=== PATIENT | female | born 1995 | race Caucasian/White ===

== ENCOUNTER 2016-11-12 03:45 | Emergency (ER) | payer SELFPAY ==
[2016-11-12] MEDS ORDERED: IBUPROFEN 600 MG TABLET PO ONE (07:40)
[2016-11-12 08:17] LABS: ABSOLUTE LYMPHOCYTES (AUTO) 1.4 10^3/uL (0.5-4.7); ABSOLUTE MONOCYTES (AUTO) 0.7 10^3/uL (0.1-1.4); ABSOLUTE NEUT (AUTO) 9.3 10^3/uL (1.7-8.2); BASOPHILS % (AUTO) 0.3 % (0-2); EOSINOPHILS % (AUTO) 0.4 % (0-6); HEMATOCRIT 37.7 % (36.0-47.0); HEMOGLOBIN 12.3 g/dL (12.0-15.5); HGB HCT DIFFERENCE -0.8; LYMPHOCYTES % (AUTO) 11.8 % (13-45); MEAN CORPUSCULAR HEMOGLOBIN 27.6 pg (27.0-33.4); MEAN CORPUSCULAR HGB CONC 32.5 g/dL (32.0-36.0); MEAN CORPUSCULAR VOLUME 85 fl (80-97); MONOCYTES % (AUTO) 6.4 % (3-13); RED BLOOD COUNT 4.43 10^6/uL (3.72-5.28); RED CELL DISTRIBUTION WIDTH 13.3 % (11.5-14.0); SEGMENTED NEUTROPHILS % (AUTO) 81.1 % (42-78); WHITE BLOOD COUNT 11.5 10^3/uL (4.0-10.5)
[2016-11-12 08:23] LABS: ANION GAP 16 (5-19); BLOOD UREA NITROGEN 9 mg/dL (7-20); CALCIUM 9.7 mg/dL (8.4-10.2); CARBON DIOXIDE 25 mmol/L (22-30); CHLORIDE 103 mmol/L (98-107); GLUCOSE 94 mg/dL (75-110); POTASSIUM 4.3 mmol/L (3.6-5.0); SODIUM 144.4 mmol/L (137-145)
[2016-11-12] MEDS ORDERED: DEXAMETHASONE 4 MG TABLET PO ONE (09:32)
--- NOTE | 2016-11-12 09:36 | ER Document Report ---
ED General - General Chief Complaint: Sore Throat Stated Complaint: THROAT PAIN TRAVEL OUTSIDE OF THE [place] IN LAST 30 DAYS: No - HPI Patient complains to provider of: sore throat lymph node left neck Notes: Patient coming in for assessment of a sore throat ongoing for last 2 days and enlarged lymph node left side of the neck ongoing for the last week. Patient states was recently exposed to a friend with mono. Denies any fevers chills nausea vomiting. Patient states hurts to swallow food however she is able to tolerate solid food and liquids. No other medications - Related Data Allergies/Adverse Reactions: acetaminophen [From Percocet] Allergy (Verified 02/24/15 22:33) Amphetamine Aspartate * [From Adderall] Allergy (Verified 02/24/15 22:33) amphetamine sulfate [From Adderall] Allergy (Verified 02/24/15 22:33) dextroamphetamine [From Adderall] Allergy (Verified 02/24/15 22:33) oxycodone HCl [From Percocet] Allergy (Verified 02/24/15 22:33) Past Medical History - Social History Smoking Status: Never Smoker Chew tobacco use (# tins/day): No Frequency of alcohol use: Social Drug Abuse: None Family History: Reviewed & Not Pertinent Patient has suicidal ideation: No Patient has homicidal ideation: No Psychiatric Medical History: Reports: Hx Attention Deficit Hyperactivity Disorder - Immunizations Hx Diphtheria, Pertussis, Tetanus Vaccination: No Review of Systems - Review of Systems Constitutional: No symptoms reported EENT: Throat pain Cardiovascular: No symptoms reported Respiratory: No symptoms reported Gastrointestinal: No symptoms reported Genitourinary: No symptoms reported Female Genitourinary: No symptoms reported Musculoskeletal: No symptoms reported Skin: No symptoms reported Hematologic/Lymphatic: No symptoms reported Neurological/Psychological: No symptoms reported -: Yes All other systems reviewed and negative Physical Exam - Vital signs Vitals: Temp Pulse Resp BP Pulse Ox 99 F 92 18 133/58 H 99 11/12/16 03:56 11/12/16 03:56 11/12/16 03:56 11/12/16 03:56 11/12/16 03:56 Interpretation: Normal - General General appearance: Appears well, Alert - HEENT Head: Normocephalic, Atraumatic Eyes: Normal Conjunctiva: Normal Cornea: Normal Pupils: PERRL Neck: Lymphadenopathy - Solitary lymph node and tender to palpation no fluctuance on left side anything of the mandible. - Respiratory Respiratory status: No respiratory distress Chest status: Nontender Breath sounds: Normal Chest palpation: Normal - Cardiovascular Rhythm: Regular Heart sounds: Normal auscultation Murmur: No - Abdominal Inspection: Normal Distension: No distension Bowel sounds: Normal Tenderness: Nontender Organomegaly: No organomegaly - Back Back: Normal, Nontender - Extremities General upper extremity: Normal inspection, Nontender, Normal color, Normal ROM , Normal temperature General lower extremity: Normal inspection, Nontender, Normal color, Normal ROM , Normal temperature, Normal weight bearing. No: Gabby's sign - Neurological Neuro grossly intact: Yes Cognition: Normal Orientation: AAOx4 [place] Coma Scale Eye Opening: Spontaneous Carine Coma Scale Verbal: Oriented Carine Coma Scale Motor: Obeys Commands Carine Coma Scale Total: 15 Speech: Normal Motor strength normal: LUE, RUE, LLE, RLE Sensory: Normal - Psychological Associated symptoms: Normal affect, Normal mood - Skin Skin Temperature: Warm Skin Moisture: Dry Skin Color: Normal Course - Re-evaluation Re-evalutation: 11/12/16 15:34 Patient lab work shows no signs of mono or strep throat. Patient will be treated with steroids and Magic mouthwash more likely viral pharyngitis will be discharged home - Vital Signs Vital signs: Temp Pulse Resp BP Pulse Ox 98.3 F 74 15 119/52 L 97 11/12/16 09:43 11/12/16 09:43 11/12/16 09:43 11/12/16 09:43 11/12/16 09:43 - Laboratory Result Diagrams: 11/12/16 07:33 11/12/16 07:33 Laboratory results interpreted by me: 11/12/16 07:33 WBC 11.5 H Seg Neutrophils % 81.1 H Lymphocytes % 11.8 L Absolute Neutrophils 9.3 H Discharge - Discharge Clinical Impression: Sore throat (viral) Condition: Good Disposition: HOME, SELF-CARE Instructions: Sore Throat ([facility]), Lymphadenopathy ([facility]) Additional Instructions: Follow-up with your primary care physician. At this time your monitored testing strep testing are all negative. Return to ER symptoms worsen Prescriptions: Magic Mouthwash 5 ml PO Q6 PRN #120 PRN Reason: Forms: Return to Work
[2016-11-12 09:51] VITALS: BP 119/52
== END 2016-11-12 09:45 | disposition home or self-care (01) ==
LOC: ER 03:45
DX: J02.9 Acute pharyngitis, unspecified (principal); Z88.6 Allergy status to analgesic agent
CPT/HCPCS: 36415; 80048; 84703; 85025; 86308; 87070; 87077; 87804; 87880; 99283

== ENCOUNTER 2017-02-28 10:13 | Emergency (ER) | payer SELFPAY ==
--- NOTE | 2017-02-28 11:22 | ER Document Report ---
ED GI/ - General Chief Complaint: STD Exposure Stated Complaint: POSSIBLE STD EXPOSURE Time seen by provider: 11:19 Mode of Arrival: Ambulatory Information source: Patient Notes: 21-year-old female presents to ED for STD exposure. She states one of her partners called her up a week ago and told her that they had a bacterial STD. She states she's had vaginal itching but denies discharge or odor. Denies any pain with urination. TRAVEL OUTSIDE OF THE [place] IN LAST 30 DAYS: No - HPI Patient complains to provider of: Other - STD exposure Onset: Other - States she was total week ago that her partner had an STD Quality of pain: Other - Vaginal itching no pain Severity in ED: None Pain Level: Denies Vaginal bleeding (Compared to normal period): None Associated symptoms: Other - Vaginal itching Exacerbated by: Denies Relieved by: Denies Similar symptoms previously: Yes Recently seen / treated by doctor: No - Related Data Allergies/Adverse Reactions: acetaminophen [From Percocet] Allergy (Verified 02/28/17 10:18) Amphetamine Aspartate * [From Adderall] Allergy (Verified 02/28/17 10:18) amphetamine sulfate [From Adderall] Allergy (Verified 02/28/17 10:18) dextroamphetamine [From Adderall] Allergy (Verified 02/28/17 10:18) oxycodone HCl [From Percocet] Allergy (Verified 02/28/17 10:18) Past Medical History - General Information source: Patient - Social History Smoking Status: Never Smoker Chew tobacco use (# tins/day): No Frequency of alcohol use: Occasional Drug Abuse: None Occupation: [employer] Lives with: Alone Family History: Arthritis, CAD, CVA, Hyperlipidemia, Hypertension, Malignancy Patient has suicidal ideation: No Patient has homicidal ideation: No - Past Medical History Cardiac Medical History: Reports: None Pulmonary Medical History: Reports: None EENT Medical History: Reports: None Neurological Medical History: Reports: None Endocrine Medical History: Reports: None Renal/ Medical History: Reports: None Malignancy Medical History: Reports: None GI Medical History: Reports: None Musculoskeltal Medical History: Reports None Psychiatric Medical History: Reports: Hx Attention Deficit Hyperactivity Disorder Traumatic Medical History: Reports: None Infectious Medical History: Reports: None Surgical Hx: Negative Past Surgical History: Reports: None - Immunizations Hx Diphtheria, Pertussis, Tetanus Vaccination: No Review of Systems - Review of Systems Constitutional: No symptoms reported EENT: No symptoms reported Cardiovascular: No symptoms reported Respiratory: No symptoms reported Gastrointestinal: No symptoms reported Genitourinary: No symptoms reported Female Genitourinary: Other - Vaginal itching and STD exposure Musculoskeletal: No symptoms reported Skin: No symptoms reported Hematologic/Lymphatic: No symptoms reported Neurological/Psychological: No symptoms reported Physical Exam - Vital signs Vitals: Temp Pulse Resp BP Pulse Ox 97.3 F 80 16 120/68 100 02/28/17 10:17 02/28/17 10:17 02/28/17 10:17 02/28/17 10:17 02/28/17 10:17 Interpretation: Normal - General General appearance: Appears well, Alert - HEENT Head: Normocephalic, Atraumatic Eyes: Normal Pupils: PERRL - Respiratory Respiratory status: No respiratory distress Chest status: Nontender Breath sounds: Normal Chest palpation: Normal - Cardiovascular Rhythm: Regular Heart sounds: Normal auscultation Murmur: No - Abdominal Inspection: Normal Distension: No distension Bowel sounds: Normal Tenderness: Nontender Organomegaly: No organomegaly - Genitourinary External exam: Normal Speculum exam: Vaginal discharge - Greenish yellow Vaginal bleeding: None Bimanuel exam: Normal - Back Back: Normal, Nontender - Extremities General upper extremity: Normal inspection, Nontender, Normal color, Normal ROM , Normal temperature General lower extremity: Normal inspection, Nontender, Normal color, Normal ROM , Normal temperature, Normal weight bearing. No: Gabby's sign - Neurological Neuro grossly intact: Yes Cognition: Normal Orientation: AAOx4 [place] Coma Scale Eye Opening: Spontaneous Carine Coma Scale Verbal: Oriented Carine Coma Scale Motor: Obeys Commands Carine Coma Scale Total: 15 Speech: Normal Motor strength normal: LUE, RUE, LLE, RLE Sensory: Normal - Psychological Associated symptoms: Normal affect, Normal mood - Skin Skin Temperature: Warm Skin Moisture: Dry Skin Color: Normal Course - Re-evaluation Re-evalutation: 02/28/17 16:19 Patient was treated with azithromycin and Rocephin and Flagyl while in the emergency room. She was discharged home with a prescription for Flagyl. Nurse instructed to please call patient and let her know that her chlamydia is positive. She is already been treated. - Vital Signs Vital signs: Temp Pulse Resp BP Pulse Ox 97.7 F 73 16 115/61 92 02/28/17 12:41 02/28/17 12:41 02/28/17 12:41 02/28/17 12:41 02/28/17 12:41 - Laboratory Laboratory results interpreted by me: 02/28/17 11:18 Chlamydia DNA (PCR) DETECTED H Discharge - Discharge Clinical Impression: Yeast infection of the vagina, Bacterial vaginosis, STD exposure Condition: Stable Disposition: HOME, SELF-CARE Instructions: Family Physicians / Practices Additional Instructions: VAGINOSIS, BACTERIAL: Your exam shows you have bacterial vaginosis. This condition is due to an overgrowth of bacteria in the vagina. Symptoms may include vaginal itching or pain, a smelly discharge, and sometimes burning with urination. Normally this is not transmitted by sexual contact. Vaginosis can be treated with oral or topical antibiotics. Metronidazole ( Flagyl) pills are usually effective. Topical vaginal creams include Cleocin and Metro-Gel. You should avoid sexual contact until your symptoms are all better. Call the doctor if you develop pelvic pain, fever, or problems with urination, or if you don't improve as expected. VAGINAL YEAST INFECTION: You have evidence of a yeast infection -- called "tess." A vaginal yeast infection often causes itching and discharge. While not dangerous, it can be very unpleasant. A yeast infection often follows the use of powerful antibiotics. It is more likely to occur in diabetics. The treatment now is usually a single pill of Diflucan, but also an antifungal cream or suppository may be used for a few days. You do not need to avoid sexual intercourse. Recurrences are common. You can make a recurrence less likely by wearing cotton underwear and avoiding tight clothing. For mild recurrences, you can try [id number] creams or suppositories that are made specifically for yeast. If the symptoms do not resolve, you should follow up for re-examination. Sometimes treatment of the sexual partner is necessary if infections are recurrent. CEPHALOSPORINS: An antibiotic of the cephalosporin class has been prescribed. This type of antibiotic covers a wide variety of infections, including those of the skin, lungs, middle ear, and urinary tract. This antibiotic is somewhat similar to the penicillin family. In rare cases , a person who is allergic to penicillin will also be allergic to this medication. If you have had a severe allergic reaction to penicillin, and have not taken this antibiotic since that time, notify your doctor. Antibiotics which cover many germs ("broad spectrum" antibiotics) are more likely to cause diarrhea or "yeast" infections. Women prone to vaginal yeast problems may suffer an attack after taking this antibiotic. In infants, oral thrush (white spots "stuck" on the cheek) or yeast diaper rash may result. See your doctor if these problems occur. Call the doctor at once if you develop hives, itching, shortness of breath , or lightheadedness. AZITHROMYCIN: Azithromycin (Zithromax) is a broad spectrum antibiotic in the same class as erythromycin. It can treat a variety of bacterial infections, but is most frequently used for respiratory infections. Azithromycin is extremely long-lasting. It accumulates in body tissues and continues to kill bacteria for many days. In order to improve absorption, Azithromycin should be taken at least one hour before or two hours after a meal. It does not have the same strong tendency to upset the stomach as erythromycin and is usually very well tolerated. Patients who have had a rash or other true allergic reactions to erythromycin should not take this medication. Call if you develop gastrointestinal distress, severe diarrhea, rash, hives, itching, or shortness of breath. METRONIDAZOLE: Metronidazole (Flagyl) has been prescribed. This medication is used to kill a type of bacteria called anaerobes, and protozoan parasites such as trichomonas and Giardia. Flagyl often causes a metallic taste in the mouth and mild nausea. Do not use alcohol in any form with Flagyl (including alcohol in medication elixirs). Flagyl interacts with alcohol to cause flushing, palpitations, headache, stomach cramps, and vomiting. Do not use Flagyl if you are taking Antabuse (disulfiram). Call the doctor at once if you develop rash, shortness of breath, itching, or lightheadedness. FLUCONAZOLE: Fluconazole (Diflucan) is an antifungal drug. It is useful for serious fungal infections, but is also excellent for oral or vaginal yeast infections. Diflucan interacts with some medicines. This is a concern if you are taking anticoagulants (such as Coumadin), phenytoin (Dilantin), cyclosporin, or oral hypoglycemics (such as tolbutamide, Orinase, glipizide, Glucotrol, glyburide, DiaBeta, Glynase, and Micronase). Be sure the doctor knows if you are taking one of these medicines. We don't know how Diflucan affects . If you are planning to become , discuss this with your doctor. Diflucan has few side effects. Minor side effects may include nausea, headache, or diarrhea. Call the doctor if you develop a skin rash, shortness of breath, or other new symptoms. FOLLOW-UP CARE: If you have been referred to a physician for follow-up care, call the physician s office for an appointment as you were instructed or within the next two days. If you experience worsening or a significant change in your symptoms, notify the physician immediately or return to the Emergency Department at any time for re-evaluation. Prescriptions: Fluconazole [Diflucan] 150 mg PO ONCE PRN #1 tablet PRN Reason: Metronidazole [Flagyl 500 mg Tablet] 500 mg PO BID #14 tablet Forms: Return to Work
[2017-02-28] MEDS ORDERED: METRONIDAZOLE 500 MG TABLET PO ONE (12:15)
[2017-02-28] MEDS ORDERED: AZITHROMYCIN 250 MG TABLET PO ONE (12:16)
[2017-02-28] MEDS ORDERED: LIDOCAINE 1% INJ-PF (10 MG/ML) 30 ML SDV INJ ONE (12:16)
[2017-02-28] MEDS ORDERED: CEFTRIAXONE INJ 250 MG VIAL IM ONE (12:16)
[2017-02-28 12:44] VITALS: BP 115/61
[2017-02-28 13:14] LABS: CHLAM PCR DETECTED (NOT DETECT)
== END 2017-02-28 12:44 | disposition home or self-care (01) ==
LOC: ER 10:13
DX: B37.3 Candidiasis of vulva and vagina (principal); N76.0 Acute vaginitis; Z20.2 Contact with and (suspected) exposure to infections with a predominantly sexual mode of transmission
CPT/HCPCS: 99283; 96372; 87210; 87491; 87591; J3490; J0696

== ENCOUNTER 2017-07-30 13:41 | Emergency (ER) | payer SELFPAY ==
[2017-07-30 13:47] VITALS: BP 121/58
--- NOTE | 2017-07-30 14:19 | ER Document Report ---
ED Skin Rash/Insect Bite/Abscs - General Chief Complaint: Skin Problem Stated Complaint: SKIN ISSUE ON FACE Time Seen by Provider: 07/30/17 14:05 Notes: Patient is a 21-year-old female presents emergency department complaining of concern for skin infection. Patient states that she had a pimple under her nose and on her chin that she popped a couple of days ago and since then has had a yellow crust to it. She admits to mild tenderness to the one under her nose but otherwise denies any drainage, surrounding redness or any fevers or chills. Otherwise healthy female. Denies any history of MRSA or VRE TRAVEL OUTSIDE OF THE [place] IN LAST 30 DAYS: No - Related Data Allergies/Adverse Reactions: acetaminophen [From Percocet] Allergy (Verified 07/30/17 13:44) Amphetamine Aspartate * [From Adderall] Allergy (Verified 07/30/17 13:44) amphetamine sulfate [From Adderall] Allergy (Verified 07/30/17 13:44) dextroamphetamine [From Adderall] Allergy (Verified 07/30/17 13:44) oxycodone HCl [From Percocet] Allergy (Verified 07/30/17 13:44) Past Medical History - Social History Smoking Status: Never Smoker Frequency of alcohol use: None Drug Abuse: None Family History: Arthritis, CAD, CVA, Hyperlipidemia, Hypertension, Malignancy Renal/ Medical History: Denies: Hx Peritoneal Dialysis Psychiatric Medical History: Reports: Hx Attention Deficit Hyperactivity Disorder Surgical Hx: Negative - Immunizations Hx Diphtheria, Pertussis, Tetanus Vaccination: No Review of Systems - Review of Systems Constitutional: No symptoms reported EENT: No symptoms reported Skin: See HPI -: Yes All other systems reviewed and negative Physical Exam - Vital signs Vitals: Temp Pulse Resp BP Pulse Ox 98.8 F 64 15 121/58 L 99 07/30/17 13:43 07/30/17 13:43 07/30/17 13:43 07/30/17 13:43 07/30/17 13:43 - General General appearance: Appears well, Alert In distress: None - HEENT Head: Normocephalic, Atraumatic Eyes: Normal Conjunctiva: Normal Eyelashes: Normal Pupils: PERRL Nasal: Normal Mouth/Lips: Normal Mucous membranes: Normal Pharynx: Normal. No: Peritonsillar abscess, Retropharyngeal abscess, Potential airway comprom. Neck: Normal. No: Anterior cervical chain, Posterior cervical chain - Respiratory Respiratory status: No respiratory distress Chest status: Nontender Breath sounds: Normal Chest palpation: Normal - Cardiovascular Rhythm: Regular Heart sounds: Normal auscultation, S1 appreciated, S2 appreciated Gallop: None auscultated - Skin Location of irregularity: Face - superficial flat, crusted area no wider than half a centimeter underneath her nose and one on her chin without any surrounding induration, tenderness, erythema Course - Re-evaluation Re-evalutation: 07/30/17 15:29 Patient is a 21-year-old female is hemodynamically stable, no acute distress afebrile. Presentation is consistent with a superficial skin infection consistent with impetigo. Will treat with ointment. Patient educated on skin care using daily cleanser and moisturizer. Patient given signs and symptoms to be aware of indicating return to the emergency department - Vital Signs Vital signs: Temp Pulse Resp BP Pulse Ox 98.8 F 64 15 121/58 L 99 07/30/17 13:43 07/30/17 13:43 07/30/17 13:43 07/30/17 13:43 07/30/17 13:43 Discharge - Discharge Clinical Impression: Impetigo Condition: Good Disposition: HOME, SELF-CARE Instructions: Bactroban Ointment ([facility]), Impetigo ([facility]) Prescriptions: Mupirocin [Bactroban 2% Ointment 22 gm] 1 applic TP TID #1 tube
== END 2017-07-30 14:25 | disposition home or self-care (01) ==
LOC: ER 13:41
DX: L01.00 Impetigo, unspecified (principal); Z88.5 Allergy status to narcotic agent; Z88.8 Allergy status to other drugs, medicaments and biological substances
CPT/HCPCS: 99283

== ENCOUNTER 2019-02-27 21:32 | Outpatient (CLI) | payer MEDICAID ==
--- NOTE | 2019-02-27 22:42 | Non Stress Test Report ---
Non Stress Test Datetime Report Generated by CPN: 02/27/2019 22:42 DEMOGRAPHIC Test Number: 1 EGA NST: 37.4 INDICATION Indication for Study: Ordered by Provider MONITORING Monitor Explained: Monitor Explained; Test Explained; Patient Verbalized Understanding Time on Monitor: 02/27/2019 21:56 Time off Monitor: 02/27/2019 22:35 NST Duration: 39 NST INTERVENTIONS NST Interventions: PO Hydration NST Interventions: PO Hydration; Reposition Patient Physician Notified NST: Dat BABY A: [id number] BABY A Movement : Present Movement : Present Contraction Frequency : irritibility FHR Baseline : 130 Accelerations : 15X15 Decelerations : None Variability : Moderate 6-25bpm NST Review: Meets Criteria for Reactive NST NST Review: Meets Criteria for Reactive NST NST Review and Verified By : Bobbi Valentine [facility] NST Results: Reactive NST Results: Reactive NST REPORT Report Trigger: Send Report
== END 2019-02-27 22:42 | disposition home or self-care (01) ==
LOC: LC 21:32
PROVIDERS: ATTEND Obstetrics & Gynecology
PROC: 4A1HXCZ Monitoring of Products of Conception, Cardiac Rate, External Approach (ICD-10-PCS; principal; 2019-02-27)
DX: O47.1 False labor at or after 37 completed weeks of gestation (principal); Z3A.37 37 weeks gestation of pregnancy
CPT/HCPCS: 59025; 84112

== ENCOUNTER 2019-03-08 02:36 | Outpatient (CLI) | payer MEDICAID ==
--- NOTE | 2019-03-08 03:14 | Non Stress Test Report ---
Non Stress Test Datetime Report Generated by CPN: 03/08/2019 03:13 DEMOGRAPHIC Test Number: 2 EGA NST: 38.6 INDICATION Indication for Study: Ordered by Provider MONITORING Monitor Explained: Monitor Explained; Test Explained; Patient Verbalized Understanding Time on Monitor: 03/08/2019 02:51 Time off Monitor: 03/08/2019 03:11 NST Duration: 20 NST INTERVENTIONS NST Interventions: PO Hydration Physician Notified NST: Dr. Blackwell BABY A: [id number] BABY A Movement : Present Contraction Frequency : irritibility R Baseline : 130 Accelerations : 15X15 Decelerations : None Variability : Moderate 6-25bpm NST Review: Meets Criteria for Reactive NST NST Review and Verified By : TYRON Hankins NST Results: Reactive NST REPORT Report Trigger: Send Report
[2019-03-08 03:43] LABS: APPEARANCE,URINE CLEAR; BILIRUBIN,URINE NEGATIVE (NEGATIVE); COLOR,URINE STRAW; GLUCOSE, URINE NEGATIVE (NEGATIVE); KETONES,URINE NEGATIVE (NEGATIVE); LEUKOCYTE ESTERASE,URINE NEGATIVE (NEGATIVE); NITRITE,URINE NEGATIVE (NEGATIVE); PROTEIN,URINE NEGATIVE (NEGATIVE); URINE SPECIFIC GRAVITY 1.005; UROBILINOGEN,URINE NEGATIVE mg/dL (<2.0)
[2019-03-08 06:16] LABS: URINE AMPHETAMINES SCREEN NEGATIVE; URINE BARBITURATES SCREEN NEGATIVE; URINE BENZODIAZEPINES SCREEN NEGATIVE; URINE COCAINE SCREEN NEGATIVE; URINE MARIJUANA (THC) SCREEN NEGATIVE; URINE METHADONE SCREEN NEGATIVE; URINE PHENCYCLIDINE SCREEN NEGATIVE
== END 2019-03-08 03:58 | disposition home or self-care (01) ==
LOC: LC 02:36
PROVIDERS: ATTEND Obstetrics & Gynecology Gynecology
DX: O46.93 Antepartum hemorrhage, unspecified, third trimester (principal); Z3A.38 38 weeks gestation of pregnancy
CPT/HCPCS: 59025; 80307; 81005

== ENCOUNTER 2019-03-09 23:25 | Inpatient (IN) | payer MEDICAID ==
[2019-03-09] MEDS ORDERED: PENICILLIN G-K 5 MILLION UNIT VIAL ONE (23:56)
[2019-03-09] MEDS ORDERED: OXYTOCIN 10 UNIT/ML VIAL ONE (23:56)
[2019-03-09] MEDS ORDERED: MISOPROSTOL 0.2 MG TABLET ONE (23:56)
[2019-03-09] MEDS ORDERED: OXYTOCIN/NORMAL SALINE 20 UNIT/1,000 ML RTUINJ ONE (23:56)
[2019-03-09] MEDS ORDERED: LIDOCAINE 1% INJ-PF (10 MG/ML) 30 ML SDV ONE (23:56)
[2019-03-10] MEDS ORDERED: CLINDAMYCIN 900 MG/D5W RTU 900 MG/50 ML RTUPB IV ONE (00:01)
--- NOTE | 2019-03-10 00:33 | Admission Physical ---
Datetime Report Generated by CPN: 03/10/2019 00:32 CURRENT ADMISSION Chief Complaint: Uterine Contractions Indication for Induction: Not Applicable Admit Impression : Term, Intrauterine ; Active Labor Admit Plan: Admit to Unit; Initiate Labor Protocol ALLERGIES Medication Allergies: Yes Medication Allergies: oxycodone HCl (07/30/2017); amphetamine sulfate (07/30/2017); acetaminophen (07/30/2017); dextroamphetamine (07/30/2017); Amphetamine Aspartate * (07/30/2017) Latex: No Latex Allergies OBSTETRICAL HISTORY EDC: 03/16/2019 00:00 : 1 Para: 0 Term: 0 : 0 SAB: 0 IAB: 0 Ectopic: 0 Livin Cesareans: 0 VBACs: 0 Multiple Births: 0 Gestational Diabetes: No Rh Sensitization: No Incompetent Cervix: No LAURA: No Infertility: No ART Treatment: No Uterine Anomaly: No IUGR: No Hx Previous C/S: No Macrosomia: No Hx Loss/Stillborn: No PIH: No Hx : No Placenta Previa/Abruption: No Depression/PP Depression: No PTL/PROM: No Post Hemorrhage: No Obstetrical History Comments: G1- current SEE RECORDS Alcohol: No Marijuana : No Cocaine: No Other Illicit Drugs: No Cigarettes: Never Smoker. 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 Heart Disease: No Hosp/Surgery: No Autoimmune Disorder: No Anesthetic Complications: No Kidney Disease: No Abnormal Pap Smear: No Neuro/Epilepsy: No Psychiatric Disorders: No Other Medical Diseases: No Hepatitis/Liver Disease: No Significant Family History: No Varicosities/Phlebitis: No Trauma/Violence : No Thyroid Dysfunction: No INFECTIOUS HISTORY Gonorrhea: No Genital Herpes: No Chlamydia: No Tuberculosis: No Syphilis: No Hepatitis: No HIV/AIDS Exposure: No Rash or Viral Illness: No HPV: Yes Infectious History Comments: Abnormal pap-ASCUS w/HRHPV PHYSICAL EXAM General: Normal HEENT: Normal Neurologic: Normal Thyroid: Normal Heart: Normal Lungs: Normal Breast: Normal Back: Normal Abdomen: Normal Genitourinary Exam: Normal Extremities: Normal DTRs: Normal Pelvic Type: Adequate Vital Signs: Reviewed; Within Normal Limits VAGINAL EXAM Dilatation: 8 Effacement: 100 Station: 0 Contraction Comments: q 2-3 min MEMBRANES Membranes: Intact FETUS A EGA: 39.1 Monitoring: External US FHR- Baseline: 120s Variability: Moderate 6-25bpm Accelerations: 15X15 Decelerations: None FHR Category: Category I Admit Comment: This G1 presented to L_D c/o contractions. She is GBS Positive. PLANS FOR LABOR AND DELIVERY Labor and Delivery: None Pain Management: Epidural Feeding Preference: Formula Benefit of Breast Feed Discussed: Yes Circumcision: Yes INFORMED CONSENT Signature: with User ID: [email or web address]
[2019-03-10] MEDS ORDERED: RINGERS SOLUTION,LACTATED 1,000 ML IV PRN (00:58)
[2019-03-10] MEDS ORDERED: FENTANYL CITRATE INJ/PF 100 MCG/2 ML AMPUL ONE (01:01)
[2019-03-10] MEDS ORDERED: EPHEDRINE SULFATE INJ 50 MG/1 ML AMPULE ONE (01:01)
[2019-03-10] MEDS ORDERED: BUPIVACAINE HCL 0.25 % INJ/PF (2.5 MG/1 ML) 30 ML VIAL ONE (01:02)
[2019-03-10] MEDS ORDERED: FENTANYL/BUPIVACAINE/NS/PF 300 MCG/150 ML RTUINJ EPI ONE (01:02)
[2019-03-10 01:14] LABS: APPEARANCE,URINE SLIGHTLY-CLOUDY; BILIRUBIN,URINE NEGATIVE (NEGATIVE); COLOR,URINE STRAW; GLUCOSE, URINE NEGATIVE (NEGATIVE); KETONES,URINE NEGATIVE (NEGATIVE); LEUKOCYTE ESTERASE,URINE MODERATE (NEGATIVE); NITRITE,URINE NEGATIVE (NEGATIVE); PROTEIN,URINE NEGATIVE (NEGATIVE); URINE SPECIFIC GRAVITY 1.003; UROBILINOGEN,URINE NEGATIVE mg/dL (<2.0)
[2019-03-10 01:15] LABS: ABSOLUTE EOSINOPHILS # (AUTO) 0.2 10^3/uL (0.0-0.6); ABSOLUTE LYMPHOCYTES (AUTO) 1.9 10^3/uL (0.5-4.7); ABSOLUTE MONOCYTES (AUTO) 0.8 10^3/uL (0.1-1.4); ABSOLUTE NEUT (AUTO) 7.2 10^3/uL (1.7-8.2); BASOPHILS % (AUTO) 0.2 % (0-2); HEMATOCRIT 35.1 % (36.0-47.0); HEMOGLOBIN 11.8 g/dL (12.0-15.5); MEAN CORPUSCULAR HEMOGLOBIN 28.9 pg (27.0-33.4); MEAN CORPUSCULAR HGB CONC 33.5 g/dL (32.0-36.0); MEAN CORPUSCULAR VOLUME 87 fl (80-97); MONOCYTES % (AUTO) 7.7 % (3-13); PLATELET COUNT 249 10^3/uL (150-450); RED BLOOD COUNT 4.06 10^6/uL (3.72-5.28); RED CELL DISTRIBUTION WIDTH 12.9 % (11.5-14.0); SEGMENTED NEUTROPHILS % (AUTO) 71.1 % (42-78); TOTAL CELLS COUNTED % (AUTO) 100 %; WHITE BLOOD COUNT 10.1 10^3/uL (4.0-10.5)
[2019-03-10] MEDS ORDERED: CLINDAMYCIN 900 MG/D5W RTU 900 MG/50 ML RTUPB IV SCH (02:00)
[2019-03-10 02:15] LABS: URINE AMPHETAMINES SCREEN NEGATIVE; URINE BARBITURATES SCREEN NEGATIVE; URINE BENZODIAZEPINES SCREEN NEGATIVE; URINE COCAINE SCREEN NEGATIVE; URINE MARIJUANA (THC) SCREEN NEGATIVE; URINE METHADONE SCREEN NEGATIVE; URINE PHENCYCLIDINE SCREEN NEGATIVE
[2019-03-10] MEDS ORDERED: ACETAMINOPHEN WITH CODEINE #3 TABLET PO PRN ×3 (04:23→12:16)
[2019-03-10] MEDS ORDERED: DIPH/PERTUSS(ACELL)/TETANUS VAC/PF 0.5 ML SYR (>=10YO) IM PRN (04:23)
[2019-03-10] MEDS ORDERED: DIBUCAINE 1% OINTMENT 56 GM TP PRN (04:23)
[2019-03-10] MEDS ORDERED: ZOLPIDEM TARTRATE 5 MG TABLET PO PRN (04:23)
[2019-03-10] MEDS ORDERED: OXYTOCIN/NORMAL SALINE 25,000 UNIT/1,250,000 ML RTUINJ IV PRN (04:23)
--- NOTE | 2019-03-10 05:20 | Delivery Summary ---
Del Sum A-C Datetime Report Generated by CPN: 03/10/2019 05:20 DELIVERY PERSONNEL DELIVERY PERSONNEL: [id number] Delivery Doctor:: Monika Romero MD Labor and Delivery Nurse:: Kelsey Plata RNpublic employment mediator Nurse:: Blaire Gaona RN Deburr Technician/BARREL ASSEMBLER HELPER: Bridgette Green, ST MATERNAL INFORMATION Delivery Anesthesia: Epidural Medications During Delivery: cytotec 1000 mcg per rectum Medications After Delivery: Pitocin Drip 20 Units/1000ml NSS; Cytotec 1000mcg Per Rectum/Vagina Estimated Blood Loss (ml): 500 Maternal Complications: None Provider Comments: of a viable male at 0345 with an JOY presentation; APGARS 8, 9; bilateral periurethral lacs LABOR SUMMARY EDC: 03/16/2019 00:00 No. Babies in Womb: 1 Attempted: No Labor Anesthesia: Epidural LABOR INFORMATION Reason for Induction: Not Applicable Onset of Labor: 03/09/2019 23:45 Complete Dilatation: 03/10/2019 01:51 Oxytocin: N/A Group B Beta Strep: Positive Antibiotics # of Doses: 1 Antibiotics Time of Last Dose: 0023 Name of Antibiotic Given: clindamycin Steroids Given: None Reason Steroids Not Administered: Not Applicable MEMBRANES Membranes Rupture Method: Spontaneous Rupture of Membranes: 03/10/2019 03:06 Length of Rupture (hr): 0.65 Amniotic Fluid Color: Clear Amniotic Fluid Amount: Moderate Amniotic Fluid Odor: None STAGES OF LABOR Stage 1 hr: 2 Stage 1 min: 6 Stage 2 hr: 1 Stage 2 min: 54 VAGINAL DELIVERY Episiotomy: None Laceration #1: Periurethral Laceration Extension #1: Second Degree Laceration #2: Periurethral Laceration Extension #2: First Degree Laceration Repair: Yes Laceration Repair Note: Bilateral periurethral lacs repaired with 2-0 Chromic Sponge Count Correct: Yes Sharps Count Correct: Yes CSECTION DELIVERY Primary Indication: N/A Secondary Indication: N/A CSection Incidence: N/A Labor: N/A Elective: N/A CSection Incision: N/A BABY A INFORMATION Infant Delivery Date/Time: 03/10/2019 03:45 Method of Delivery: Vaginal Born in Route : No : N/A Forceps: N/A Vacuum Extraction: N/A Shoulder Dystocia : No PRESENTATION/POSITION BABY A Presentation: Cephalic Cephalic Presentation: Vertex Vertex Position: Left Occipital Anterior Breech Presentation: N/A PLACENTA INFORMATION BABY A Placenta Method of Delivery: Expressed Placenta Status: Delivered SCORES BABY A Heart Rate 1 min: >100 bpm Resp Effort 1 min: Good Cry Reflex Irritability 1 min: Cough or Sneeze or Pulls Away Muscle Tone 1 min: Active Motion Color 1 min: Blue/Pale Resuscitation Effort 1 min: Tactile Stimulation SCORE 1 MIN: 8 Heart Rate 5 min: >100 bpm Resp Effort 5 min: Good Cry Reflex Irritability 5 min: Cough or Sneeze or Pulls Away Muscle Tone 5 min: Active Motion Color 5 min: Body Ramona, Extremities Blue Resuscitation Effort 5 min: Tactile Stimulation SCORE 5 MIN: 9 INFANT INFORMATION BABY A Gestational Age at Delivery: 39.1 Gestational Status: Full Term- 39- 40.6 Weeks Outcome : Liveborn Condition : Stable Sex: Male IDENTIFICATION BABY A Verification Date/Time: 03/10/2019 04:37 ID Band Number: [id number] Mother's Name Verified: Yes RN Verifying Infant: M.Boni RN and A. Misyak RN WEIGHT/LENGTH BABY A Birthweight (gm): 3972 Weight (lb): 8 Infant Weight (oz): 12 Infant Length (in): 21.00 Infant Length (cm): 53.34 CORD INFORMATION BABY A No. Cord Vessels: 3 Nuchal Cord : N/A Infant Suction: Mouth; Nose ASSESSMENT BABY A Infant Complications: None Physical Findings at Delivery: Within Normal Limits Infant Respirations: Appears Normal Patient Transport Officer/ALS Called : No Care By: N. Gaona RN Transferred To: Remains with Mother BABY B INFORMATION : N/A SIGNATURES Signature: with User ID: [email or web address]
[2019-03-10] MEDS: IBUPROFEN 800 MG TABLET PO SCH ×3 (06:22→21:09)
[2019-03-10] MEDS: BENZOCAINE/MENTHOL AEROSOL SPRAY 56 ML TOP PRN (09:29)
[2019-03-10] MEDS: DOCUSATE SODIUM 100 MG CAPSULE PO SCH ×2 (09:30→18:11)
[2019-03-10] MEDS: SENNOSIDES/DOCUSATE 8.6-50 MG 1 EACH TABLET PO SCH (09:30)
[2019-03-10] MEDS: FERROUS SULFATE 325 MG TABLET PO SCH ×2 (09:30→18:10)
[2019-03-10] MEDS: PRENATAL VITAMIN W DHA CAPSULE PO SCH (09:30)
--- NOTE | 2019-03-10 10:08 | PDOC PROGRESS REPORT ---
Subjective-OB Progress Note for:: 03/10/19 Subjective: Doing well, no c/o, tired from delivery, bleeding decreased, has been up to Bathroom, voiding Physical Exam (OB) Vital Signs: Temp Pulse Resp BP Pulse Ox 98.3 F 59 L 20 108/54 L 99 03/10/19 08:44 03/10/19 08:44 03/10/19 08:44 03/10/19 08:44 03/10/19 08:44 Intake & Output 03/09/19 03/10/19 03/11/19 06:59 06:59 06:59 Weight 93.4 kg - Lochia Lochia Amount: Small 10-25 ml Lochia Color: Rubra/Red - Abdomen Description: Tender, Soft Hernia Present: No Fundal Description: Firm, Midline Fundal Height: u/u - u/2 Objective-Diagnostic Laboratory: 03/10/19 01:00 03/09/19 03/10/19 03/10/19 23:50 01:00 01:00 WBC 10.1 RBC 4.06 Hgb 11.8 L Hct 35.1 L MCV 87 MCH 28.9 MCHC 33.5 RDW 12.9 Plt Count 249 Seg Neutrophils % 71.1 Lymphocytes % 19.0 Monocytes % 7.7 Eosinophils % 2.0 Basophils % 0.2 Absolute Neutrophils 7.2 Absolute Lymphocytes 1.9 Absolute Monocytes 0.8 Absolute Eosinophils 0.2 Absolute Basophils 0.0 Urine Color STRAW Urine Appearance SLIGHTLY-CLOUDY Urine pH 7.0 Ur Specific [place] 1.003 Urine Protein NEGATIVE Urine Glucose (UA) NEGATIVE Urine Ketones NEGATIVE Urine Blood LARGE H Urine Nitrite NEGATIVE Ur Leukocyte Esterase MODERATE H Blood Type A POSITIVE Antibody Screen NEGATIVE Assessment and Plan(PN) - Assessment and Plan (1) GBS (group B Streptococcus carrier), +RV culture, currently Is this a current diagnosis for this admission?: Yes (2) Normal vaginal delivery Is this a current diagnosis for this admission?: Yes - Time Spent with Patient Time with patient: Less than 15 minutes Medications reviewed and adjusted accordingly: Yes - Disposition Anticipated Discharge: Home Within: within 24 hours
--- NOTE | 2019-03-10 10:10 | PDOC DISCHARGE SUMMARY ---
Final Diagnosis Discharge Date: 03/12/19 - Final Diagnosis (1) GBS (group B Streptococcus carrier), +RV culture, currently Is this a current diagnosis for this admission?: Yes (2) Normal vaginal delivery Is this a current diagnosis for this admission?: Yes Discharge Data - Discharge Medication Home Medications: 95/Iron Fum/Folic/Dha [ + Dha Combo Pack] 1 each PO DAILY 02/27/19 Gestational Age: 39.1 Reason(s) for Admission: Onset of Labor, Group B Strep Positive Procedures: NST, Ultrasound Intrapartum Procedure(s): Spontaneous Vaginal Delivery Complication(s): Laceration-Periurethral Laceration-Degree: 2nd - Diagnosis Test Laboratory: Temp Pulse Resp BP Pulse Ox 98.3 F 59 L 20 108/54 L 99 03/10/19 08:44 03/10/19 08:44 03/10/19 08:44 03/10/19 08:44 03/10/19 08:44 03/09/19 03/10/19 23:50 01:00 RBC 4.06 Hgb 11.8 L Hct 35.1 L Urine Opiates Screen NEGATIVE - Discharge information/Instructions Discharge Activity: Activity As Tolerated, No Lifting Over 10 Pounds, No Lifting/Push/Pulling, Pelvic Rest Discharge Diet: As Tolerated, Regular Disposition: HOME, SELF-CARE Follow up with: [facility] in: 3, Weeks
[2019-03-10] MEDS: ACETAMINOPHEN WITH CODEINE #3 TABLET PO PRN ×2 (12:44→21:08)
[2019-03-11] MEDS: IBUPROFEN 800 MG TABLET PO SCH ×3 (06:46→21:51)
[2019-03-11] MEDS: ACETAMINOPHEN WITH CODEINE #3 TABLET PO PRN ×2 (09:02→12:54)
[2019-03-11 09:09] LABS: HEMATOCRIT 33.2 % (36.0-47.0); HEMOGLOBIN 11.2 g/dL (12.0-15.5); MEAN CORPUSCULAR HEMOGLOBIN 29.3 pg (27.0-33.4); MEAN CORPUSCULAR HGB CONC 33.6 g/dL (32.0-36.0); MEAN CORPUSCULAR VOLUME 87 fl (80-97); PLATELET COUNT 212 10^3/uL (150-450); RED BLOOD COUNT 3.82 10^6/uL (3.72-5.28); RED CELL DISTRIBUTION WIDTH 12.9 % (11.5-14.0); WHITE BLOOD COUNT 7.1 10^3/uL (4.0-10.5)
--- NOTE | 2019-03-11 09:10 | PDOC PROGRESS REPORT ---
Subjective-OB Progress Note for:: 03/11/19 Subjective: Doing better today, no c/o, walking, eating well Physical Exam (OB) Vital Signs: Temp Pulse Resp BP Pulse Ox 98.3 F 63 12 109/54 L 99 03/11/19 07:32 03/11/19 07:32 03/11/19 07:32 03/11/19 07:32 03/11/19 07:32 Intake & Output 03/10/19 03/11/19 03/12/19 06:59 06:59 06:59 Weight 93.4 kg - PIH/Pre-Eclampsia Clonus: Negative Headache: Absent Epigastric Pain: No Visual Changes: No - Lochia Lochia Amount: Small 10-25 ml Lochia Color: Rubra/Red - Abdomen Description: Soft, Round Hernia Present: No Fundal Description: Firm, Midline Fundal Height: u/u - u/2 Assessment and Plan(PN) - Assessment and Plan (1) GBS (group B Streptococcus carrier), +RV culture, currently Is this a current diagnosis for this admission?: Yes (2) Normal vaginal delivery Is this a current diagnosis for this admission?: Yes - Time Spent with Patient Medications reviewed and adjusted accordingly: Yes - Disposition Anticipated Discharge: Home Within: within 24 hours
[2019-03-11] MEDS: SENNOSIDES/DOCUSATE 8.6-50 MG 1 EACH TABLET PO SCH (10:44)
[2019-03-11] MEDS: DOCUSATE SODIUM 100 MG CAPSULE PO SCH ×2 (10:44→18:01)
[2019-03-11] MEDS: FERROUS SULFATE 325 MG TABLET PO SCH ×2 (10:44→18:01)
[2019-03-11] MEDS: PRENATAL VITAMIN W DHA CAPSULE PO SCH (10:44)
[2019-03-12] MEDS: IBUPROFEN 800 MG TABLET PO SCH (06:18)
[2019-03-12] MEDS: BENZOCAINE/MENTHOL AEROSOL SPRAY 56 ML TOP PRN (06:20)
[2019-03-12] MEDS: ACETAMINOPHEN WITH CODEINE #3 TABLET PO PRN (06:47)
[2019-03-12 08:43] VITALS: BP 124/75
--- NOTE | 2019-03-12 09:14 | PDOC PROGRESS REPORT ---
Subjective-OB Progress Note for:: 03/12/19 Subjective: Doing well, family at BS, baby in room, bottle feeding, decrease bleeding Physical Exam (OB) Vital Signs: Temp Pulse Resp BP Pulse Ox 97.9 F 70 16 124/75 99 03/12/19 08:05 03/12/19 08:05 03/12/19 08:05 03/12/19 08:05 03/12/19 08:05 Intake & Output 03/11/19 03/12/19 03/13/19 06:59 06:59 06:59 Intake Total 500 Balance 500 - PIH/Pre-Eclampsia Clonus: Negative Headache: Absent Epigastric Pain: No Visual Changes: No - Lochia Lochia Amount: Small 10-25 ml Lochia Color: Rubra/Red - Abdomen Description: Soft, Round Hernia Present: No Fundal Description: Firm, Midline Fundal Height: u/u - u/2 Objective-Diagnostic Laboratory: 03/11/19 08:45 03/11/19 08:45 WBC 7.1 RBC 3.82 Hgb 11.2 L Hct 33.2 L MCV 87 MCH 29.3 MCHC 33.6 RDW 12.9 Plt Count 212 Assessment and Plan(PN) - Assessment and Plan (1) GBS (group B Streptococcus carrier), +RV culture, currently Is this a current diagnosis for this admission?: Yes (2) Normal vaginal delivery Is this a current diagnosis for this admission?: Yes - Time Spent with Patient Time with patient: Less than 15 minutes Medications reviewed and adjusted accordingly: Yes - Disposition Anticipated Discharge: Home Within: within 24 hours
[2019-03-12] MEDS: DOCUSATE SODIUM 100 MG CAPSULE PO SCH (10:16)
[2019-03-12] MEDS: FERROUS SULFATE 325 MG TABLET PO SCH (10:16)
[2019-03-12] MEDS: PRENATAL VITAMIN W DHA CAPSULE PO SCH (10:16)
[2019-03-12] MEDS: SENNOSIDES/DOCUSATE 8.6-50 MG 1 EACH TABLET PO SCH (10:16)
== END 2019-03-12 12:35 | disposition home or self-care (01) | DRG 807 ==
LOC: LC 23:25 → LR 03-10 00:18 → 2S 03-10 06:05
PROVIDERS: ADMIT Obstetrics & Gynecology; ATTEND Obstetrics & Gynecology
PROC: 10E0XZZ Delivery of Products of Conception, External Approach (ICD-10-PCS; principal; 2019-03-10)
PROC: 0UQMXZZ Repair Vulva, External Approach (ICD-10-PCS; 2019-03-10)
DX: O99.824 Streptococcus B carrier state complicating childbirth (principal); Z37.0 Single live birth; O71.82 Other specified trauma to perineum and vulva; Z3A.39 39 weeks gestation of pregnancy
CPT/HCPCS: 36415; 80307; 81005; 85025; 85027; 86592; 86850; 86900; 86901; 94760; J2540; J2590; J3010; J3490

== ENCOUNTER 2020-06-09 18:06 | Emergency (ER) | payer MEDICAID ==
[2020-06-09 18:27] VITALS: BP 120/69
--- NOTE | 2020-06-09 18:39 | ER Document Report ---
ED Respiratory Problem - General Chief Complaint: Congestion Stated Complaint: CONGESTION Time Seen by Provider: 06/09/20 18:28 Primary Care Provider: [facility] [Provider Group] - Follow up as needed Mode of Arrival: Ambulatory Information source: Patient Notes: Patient is a 24-year-old female comes to the emergency room complaining of wheezing cough congestion with low-grade fever. Patient states that she flew to [place] on 26 May and returned back on 31 May at [place]. She states she did wear a mask but she has a [id number] son that was difficult to keep a mask on and when she got to [place] her dad had a cat and she started with some allergy presentation of runny nose and congestion she does she took Claritin [id number] and did get a lot better. When she returned home on the she was still having though allergy type symptoms with some wheezing. She ran out of her inhaler and so she went to the pharmacy and got some Flonase and attempted that with [id number] antihistamine decongestants. Patient states she has not gotten any better and that yesterday she had a temp of 99.0 and today 100.2. She denies smoking and is stated she usually uses an MDI for her asthma history but is now out of that. Patient is concerned that is been right at 2 weeks since she has flown and may be showing the signs of early onset coronavirus. She states that she goes out with a mask on but that her son is very difficult to keep going on. TRAVEL OUTSIDE OF THE [place] IN LAST 30 DAYS: No - HPI Patient complains to provider of: Asthma Onset: Last week Duration: Continuous, Worse/persistent Initiating Event: Allergy Quality of pain: Achy Severity: Mild Pain Level: 1 Context: Hx asthma Short of Breath: Mild Cough: Nonproductive Sputum amount: None At home treatment: Bronchodilators, Inhaled steroids Associated symptoms: None Similar symptoms previously: Yes Recently seen / treated by doctor: No - Related Data Allergies/Adverse Reactions: acetaminophen [From Percocet] Allergy (Verified 07/30/17 13:44) Amphetamine Aspartate * [From Adderall] Allergy (Verified 07/30/17 13:44) amphetamine sulfate [From Adderall] Allergy (Verified 07/30/17 13:44) dextroamphetamine [From Adderall] Allergy (Verified 07/30/17 13:44) oxycodone HCl [From Percocet] Allergy (Verified 07/30/17 13:44) Penicillins Allergy (Verified 03/10/19 00:53) Past Medical History - General Information source: Patient - Social History Smoking Status: Never Smoker Cigarette use (# per day): No Chew tobacco use (# tins/day): No Smoking Education Provided: No Frequency of alcohol use: None Drug Abuse: None Lives with: Family Family History: Reviewed & Not Pertinent, Arthritis, CAD, CVA, Hyperlipidemia, Hypertension, Malignancy Renal/ Medical History: Denies: Hx Peritoneal Dialysis Psychiatric Medical History: Reports: Hx Attention Deficit Hyperactivity Disorder - Immunizations Hx Diphtheria, Pertussis, Tetanus Vaccination: No Review of Systems - Review of Systems Constitutional: No symptoms reported EENT: See HPI, Nose congestion Cardiovascular: No symptoms reported Respiratory: See HPI, Cough, Wheezing Gastrointestinal: No symptoms reported Genitourinary: No symptoms reported Female Genitourinary: No symptoms reported Musculoskeletal: No symptoms reported Skin: No symptoms reported Hematologic/Lymphatic: No symptoms reported Neurological/Psychological: No symptoms reported -: Yes All other systems reviewed and negative Physical Exam - Vital signs Vitals: Temp Pulse Resp BP Pulse Ox 99.7 F 83 16 120/69 99 06/09/20 18:25 06/09/20 18:25 06/09/20 18:25 06/09/20 18:25 06/09/20 18:25 Interpretation: Normal - Notes Notes: PHYSICAL EXAMINATION: GENERAL: Well-appearing, well-nourished and in no acute distress. HEAD: Atraumatic, normocephalic. EYES: Pupils equal round and reactive to light, extraocular movements intact, conjunctiva are normal. ENT: Examination head and upper airway showed nasal mucosa be mildly erythematous edematous with some rhinorrhea noted yellow in color. Patient also displays bilateral nasal congestion. But no frontal or maxillary sinus tenderness to palpation or percussion. Bilateral TMs appear normal. No air- fluid levels noted. Posterior pharynx examination shows some mild drainage in the posterior pharynx with slight yellowish in color. There is no exudate noted no growth on the uvula knowing encroachment upon the uvula and airways patent. NECK: Normal range of motion, supple without lymphadenopathy LUNGS: Auscultation patient's lungs show bilateral breath sounds with breath sounds decreased with a faint inspiratory expiratory wheeze noted bilaterally. No rhonchi or rales are heard. HEART: Regular rate and rhythm without murmurs Female : deferred Musculoskeletal: Normal range of motion, no pitting or edema. No cyanosis. NEUROLOGICAL: Normal speech, normal gait. Normal sensory, motor exams PSYCH: Normal mood, normal affect. SKIN: Warm, Dry, normal turgor, no rashes or lesions noted. Course - Re-evaluation Re-evalutation: 06/09/20 19:08 Patient's presentation was fairly benign however she has had possible exposure flying on an airplane especially with her son not having his mask in place. It sounds more like her asthma exacerbation by because of allergies to cats we will go ahead and rewrite her for her albuterol inhaler and will place her on some Sudafed. I am commended tell patient she should self isolate until after the test comes back on the COVID-19. - Vital Signs Vital signs: Temp Pulse Resp BP Pulse Ox 99.7 F 83 16 120/69 99 06/09/20 18:25 06/09/20 18:25 06/09/20 18:25 06/09/20 18:25 06/09/20 18:25 Discharge - Discharge Clinical Impression: Acute exacerbation of asthma with allergic rhinitis Condition: Stable Disposition: HOME, SELF-CARE Instructions: Asthma ([facility]), Upper Respiratory Illness ([facility]) Additional Instructions: Home and rest. Medications prescribed. As we discussed you should probably self isolate/quarantine until such time as the results of the COVID test come back. You know you have been very cautious on your travels you are on an airplane and her son has not had his mask on at all times. He has had some upper respiratory symptoms. The results of the COVID-19 should come back within 5 to 6 days. If it is positive you will be contacted by the health department or the hospital. Also you may want to come by medical records after 7days to get the final reading especially if you have not been called. We are not calling back the negatives. Should you have increasing symptoms or having worsening of symptoms return to ER for reevaluation. Social distancing should be a priority for you and not going out in public until after those test results are back. Should they come back positive you will need to reevaluate your situation and technically stay at home for 14 days. You can technically return back to work at that time if you have no fever for 24 hours off of medication. But you should still continue to wear your mask. Prescriptions: Albuterol Sulfate [Proair HFA Inhalation Aerosol 8.5 gm MDI] 2 puff IH Q4H PRN #1 mdi PRN Reason: Pseudoephedrine HCl [Sudafed 12 Hour] 120 mg PO BID PRN #20 tablet.er PRN Reason: Forms: Return to Work Referrals: [facility] [Provider Group] - Follow up as needed
[2020-06-09] MEDS ORDERED: KETOROLAC TROMETHAMINE INJ/PF 30 MG/1 ML SDV IV ONE (18:46)
[2020-06-09] MEDS ORDERED: DIPHENHYDRAMINE HCL 50 MG/ML VIAL IV ONE (18:47)
== END 2020-06-09 19:42 | disposition home or self-care (01) ==
LOC: ER 18:06
DX: J45.901 Unspecified asthma with (acute) exacerbation (principal); R05 Cough; R09.81 Nasal congestion; R50.9 Fever, unspecified; Z91.048 Other nonmedicinal substance allergy status; Z88.8 Allergy status to other drugs, medicaments and biological substances; Z88.6 Allergy status to analgesic agent; Z88.5 Allergy status to narcotic agent; Z88.0 Allergy status to penicillin; Z20.828 Contact with and (suspected) exposure to other viral communicable diseases
CPT/HCPCS: 99283; 87635; C9803